=== PATIENT | male | born 1990 | race Caucasian/White ===

== ENCOUNTER → 2016-12-25 | Emergency (ER) | payer OTHER ==
[~2016-12-25] VITALS: Ht 182.9 cm; Wt 74.8 kg
[~2016-12-25] MED LIST: ACETAMINOPHEN ES 500 MG TABLET ONE
[2016-12-25 18:37] VITALS: BP 150/90
--- NOTE | 2016-12-25 18:37 | NUR ---
PT [id number]: CHEST WALL PAIN, ABDOMINAL PAIN S/P FALL. OK TO BOOK S/P CAUGHT SHOP LIFTING. PLACED ON MONITOR. VSS
[2016-12-25 19:31] LABS: BASOPHILS % (AUTO) 0.3 % (0.0-2.0); EOSINOPHILS % (AUTO) 0.3 % (0.0-6.0); HEMATOCRIT 39 % (39-51); LYMPHOCYTES # (AUTO) 1.2 /CMM (0.8-4.8); MEAN CORPUSCULAR HEMOGLOBIN 28 PG (26.0-33.0); MEAN CORPUSCULAR HGB CONC 34 g/dl (31.0-36.0); MEAN CORPUSCULAR VOLUME 84 fL (80-96); MONOCYTES # (AUTO) 1.2 /CMM (0.1-1.30); NEUTROPHILS # (AUTO) 5.6 /CMM (1.8-8.9); NEUTROPHILS % (AUTO) 69.4 % (43.0-81.0); PLATELET COUNT (AUTO) 325 /CMM (150-450); RDW COEFFICIENT OF VARIATION 14.7 (11.5-15.0); RED BLOOD CELL COUNT(AUTO) 4.59 MIL/uL (4.5-6.0)
[2016-12-25] MEDS: ACETAMINOPHEN ES 500 MG TABLET PO ONE (19:31)
[2016-12-25 19:43] LABS: CREATININE 1.2 mg/dL (0.6-1.3); POTASSIUM 3.6 mmol/L (3.5-5.1)
[2016-12-25 19:49] LABS: ALBUMIN 3.4 g/dL (3.4-5.0); BILIRUBIN,DIRECT 0.2 mg/dL (0.0-0.2); BILIRUBIN,TOTAL 1.1 mg/dL (0.2-1.0)
== END | disposition home or self-care (01) ==
LOC: ER 18:29
DX: R10.9 Unspecified abdominal pain (principal); F41.9 Anxiety disorder, unspecified
CPT/HCPCS: 36415; 80048-TC; 80076-TC; 83690-TC; 85025-TC; A4606; Z7610